=== PATIENT | female | born 1990 | race Two or more races ===

== ENCOUNTER 2022-04-25 15:28 | Emergency (ER) | payer MEDICAID, OTHER ==
[~2022-04-25] VITALS: Ht 149.9 cm; Wt 77.1 kg
[2022-04-25 15:40] VITALS: BP 140/90
--- NOTE | 2022-04-25 15:40 | NUR ---
BIBSELF C/O PERSISTENT LEFT INGUINAL PAIN SINCE SHE HAD A GLF 02/08/2021. AMBULATORY, PLACED ON BED
[2022-04-25] MEDS ORDERED: KETOROLAC TROMETHAMINE INJ 60 MG/2 ML VIAL IM ONE (16:30)
--- NOTE | 2022-04-25 16:32 | NUR ---
U/S TECH AT BEDSIDE
[2022-04-25 17:05] LABS: BILIRUBIN,URINE NEGATIVE (NEGATIVE); COLOR,URINE YELLOW (YELLOW); LEUKOCYTE ESTERASE ,URINE NEGATIVE (NEGATIVE); NITRITE, URINE NEGATIVE (NEGATIVE); PH,URINE 5.5 (5.0-8.0); PROTEIN,URINE 1+ mg/dl (NEGATIVE); UGLUCOSE 3+ mg/dL (NEGATIVE); UROBILINOGEN,URINE 0.2 EU/dL (0.2)
[2022-04-25] MEDS ORDERED: KETOROLAC TROMETHAMINE INJ 30 MG/ML VIAL ONE (17:47)
[2022-04-25 18:08] LABS: BACTERIA,URINE 2+ /HPF (None Seen)
[2022-04-25] MEDS ORDERED: CEPH500T PO (18:14)
[2022-04-25] MEDS ORDERED: IBUP-1955 PO (18:14)
--- NOTE | 2022-04-25 18:22 | NUR ---
Patient discharged to home in stable condition. Written and verbal after care instructions given. Patient verbalizes understanding of instruction.
== END 2022-04-25 18:22 | disposition home or self-care (01) ==
LOC: ER 15:33
DX: N39.0 Urinary tract infection, site not specified (principal); R10.32 Left lower quadrant pain
CPT/HCPCS: 99284; 76856; 96372; 84703; 81001; J1885; 87086-TC